=== PATIENT | male | born 1950 | race Two or more races ===

== ENCOUNTER 2019-01-22 06:47 | Emergency (ER) | payer OTHER, MEDICARE ==
[2019-01-22] MEDS ORDERED: LIDOCAINE 2% URO-JET 5 ML KIT MM ONE (07:22)
--- NOTE | 2019-01-22 07:59 | ER Document Report ---
ED General - General Chief Complaint: Trouble Voiding Stated Complaint: UNABLE TO VOID Time Seen by Provider: 01/22/19 07:53 Mode of Arrival: Ambulatory Information source: Patient, Relative Notes: 68-year-old male with urinary retention presents with request for catheterization. Daughter is at the bedside and acts as senior mechanical engineer. Patient is from [place] and visiting from out of town and forgot his catheter kit. Daughter states that he does not have to use it frequently but that he does have it in case he is unable to urinate which she has not been able to do so for approximately 12 hours. Patient denies any fever, chills, nausea, vomiting, abdominal pain, dysuria, hematuria. TRAVEL OUTSIDE OF THE [place] IN LAST 30 DAYS: No - HPI Onset: Other Onset/Duration: Sudden Quality of pain: No pain Severity: None Pain Level: Denies Associated symptoms: denies: Chest pain, Fever, Nausea, Vomiting, Shortness of breath, Sweating, Weakness Exacerbated by: Denies Relieved by: Denies Similar symptoms previously: Yes Recently seen / treated by doctor: Yes Past Medical History - General Information source: Patient, Relative - Social History Smoking Status: Never Smoker Frequency of alcohol use: Occasional Drug Abuse: None Lives with: Spouse/Significant other Family History: Reviewed & Not Pertinent Patient has suicidal ideation: No Patient has homicidal ideation: No Renal/ Medical History: Reports: Hx Benign Prostatic Hyperplasia Review of Systems - Review of Systems Notes: REVIEW OF SYSTEMS: CONSTITUTIONAL : Denies fever, chills, or sweats. Denies recent illness. Denies weight loss, recent hospitalizations. EENT: Denies visual changes, eye pain. Denies sore throat, oral lesions, difficulty swallowing. CARDIOVASCULAR: Denies chest pain. Denies palpitations. Denies lower extremity edema. RESPIRATORY: Denies cough. Denies shortness of breath, wheezing. GASTROINTESTINAL: Denies abdominal pain or distention. Denies nausea, vomitin g, or diarrhea. Denies blood in vomitus, stools, or per rectum. Denies black, tarry stools. Denies constipation. GENITOURINARY: + difficulty urinating, denies painful urination, frequency, blood in urine, testicular pain or penile discharge. MUSCULOSKELETAL: Denies back or neck pain or stiffness. Denies joint pain or swelling. SKIN: Denies rash, lesions or sores. HEMATOLOGIC : Denies easy bruising or bleeding. LYMPHATIC: Denies swollen glands. NEUROLOGICAL: Denies confusion or altered mental status. Denies loss of consciousness. Denies dizziness or lightheadedness. Denies headache. Denies weakness or paralysis. Denies problems difficulty with ambulation, slurred speech. Denies sensory loss, numbness, or tingling. Denies seizures. PSYCHIATRIC: Denies anxiety or stress. Denies depression, suicidal ideation, or Physical Exam - Vital signs Vitals: Temp Pulse Resp BP Pulse Ox 97.4 F 71 20 188/98 H 96 01/22/19 06:53 01/22/19 06:53 01/22/19 06:53 01/22/19 06:53 01/22/19 06:53 - Notes Notes: PHYSICAL EXAMINATION: GENERAL: Well-appearing, well-nourished and in no acute distress. HEAD: Atraumatic, normocephalic. EYES: Pupils equal round and reactive to light, extraocular movements intact, sclera anicteric, conjunctiva are normal. ENT: Nares patent, oropharynx clear without exudates. Moist mucous membranes. NECK: Normal range of motion, supple without lymphadenopathy LUNGS: Breath sounds clear to auscultation bilaterally and equal. No wheezes rales or rhonchi. HEART: Regular rate and rhythm without murmurs ABDOMEN: Soft, nontender, nondistended abdomen. No guarding, no rebound. No masses appreciated. Musculoskeletal: Normal range of motion, no pitting or edema. No cyanosis. NEUROLOGICAL: Cranial nerves grossly intact. Normal speech, normal gait. Normal sensory, motor exams PSYCH: Normal mood, normal affect. SKIN: Warm, Dry, normal turgor, no rashes or lesions noted. Course - Re-evaluation Re-evalutation: Temp Pulse Resp BP Pulse Ox 97.4 F 71 20 188/98 H 96 01/22/19 06:53 01/22/19 06:53 01/22/19 06:53 01/22/19 06:53 01/22/19 06:53 01/22/19 07:58 68-year-old male with urinary retention presents with request for catheterization. Daughter is at the bedside and acts as senior mechanical engineer. Patient is from [place] and visiting from out of town and forgot his catheter kit. Daughter states that he does not have to use it frequently but that he does have it in case he is unable to urinate which she has not been able to do so for approximately 12 hours. Patient denies any fever, chills, nausea, vomiting, ab dominal pain, dysuria, hematuria. Vital signs reviewed and patient is hypertensive but afebrile. He does not appear toxic or dehydrated. He is in no acute distress. Straight cath was performed and 600 cc of urine was voided. Patient does not want a permanent Overton. 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 Patient was evaluated and treated as appropriate for the patient's presenting symptoms and complaint, with consideration of any critical or life threatening conditions that may be associated with their obtained history and exam as noted above. All results were discussed with patient and his daughter who is at the bedside patient provided the opportunity to ask questions, and express concerns. Patient was educated on treatments based on their presumed diagnosis as noted above. At this time we will discharge the patient with return precautions and follow-up recommendations. Verbal discharge instructions given a the bedside. Medication warnings reviewed. Patient is in agreement with this plan and has verbalized understanding of return precautions. After careful consideration I feel that that patient can be safely discharged from the emergency department, they were advised to followup with a primary care physician in 2-3 days. Dictation on this chart was performed using voice recognition software and may result in unintended grammatical, spelling, syntax or errors. - Vital Signs Vital signs: Temp Pulse Resp BP Pulse Ox 97.4 F 71 20 188/98 H 96 01/22/19 06:53 01/22/19 06:53 01/22/19 06:53 01/22/19 06:53 01/22/19 06:53 Discharge - Discharge Clinical Impression: Enlarged prostate, Urinary retention Condition: Good Disposition: HOME, SELF-CARE Instructions: Urinary Retention ([facility]) Additional Instructions: Regarding Blood Pressure: Your blood pressure was noted to be greater than 120/80 at least once in the emergency room today. It is recommended that you follow-up with her primary care physician in the next week for repeat blood pressure check. The Centers for Medicare and Medicaid Services has specific recommendations regarding a person's blood pressure. There are several lifestyle modifications that are recommended in order to help lower your blood pressure. These include: Quitting smoking if you smoke. Reducing the amount of sodium in your diet. Getting regular exercise Limiting alcohol to no more than 2 drinks a day for men and one drink a day for women. Eating a healthy diet, including more fruits and vegetables, low fat dairy products, less saturated and total fat. Losing weight if you are overweight. FOLLOW-UP: Call your doctor's office and let them know your blood pressure was elevated and you were advised to get your blood pressure checked in the above time-line. If you are unable to get into your doctor's office in this time period, you can follow-up with a new physician (I have left the numbers below for a few primary care doctors affiliated with this [facility]) or return to the ER. PRIMARY CARE PHYSICIANS: Dr. Yoandy Jimenez [address], [place] [address] [phone] Dr Washburn Address: [address] [place] [address] [place] [address] Dr Joseph Address: [address] [place] [address] [place] [address] Forms: Elevated Blood Pressure
[2019-01-22 08:07] VITALS: BP 164/71
== END 2019-01-22 08:07 | disposition home or self-care (01) ==
LOC: ER 06:47
DX: N40.0 Benign prostatic hyperplasia without lower urinary tract symptoms (principal); R33.9 Retention of urine, unspecified
CPT/HCPCS: 99283; 51701; C1758

== ENCOUNTER 2019-01-22 20:36 | Emergency (ER) | payer OTHER, MEDICARE ==
[2019-01-22 20:44] VITALS: BP 184/89
[2019-01-22] MEDS ORDERED: LIDOCAINE 2% URO-JET 5 ML KIT MM ONE (22:42)
--- NOTE | 2019-01-22 22:47 | ER Document Report ---
ED GI/ - General Chief Complaint: Urinary Retention Stated Complaint: NEEDS CATHETAR PLACEMENT Time Seen by Provider: 01/22/19 22:36 Mode of Arrival: Ambulatory Information source: Patient, Relative - SON TRAVEL OUTSIDE OF THE [place] IN LAST 30 DAYS: No - HPI Patient complains to provider of: Urinary retention Notes: 01/22/19 22:43 Patient is here with complaints of urinary retention. His son is at the bedside. The patient has a history of this in the past. He was seen in the emergency department earlier this morning, had a straight cath performed and was sent home with straight cathing materials. He does not feel comfortable straight cathing himself has not been able to urinate since earlier this afternoon so he came back in for evaluation. He does complain of some pain in his suprapubic area. No fever. No nausea, vomiting, diarrhea. No chest pain or shortness of breath. No rash. No injury. He is on Flomax. No other complaints at this time. - Related Data Allergies/Adverse Reactions: No Known Allergies Allergy (Unverified 01/22/19 22:02) Past Medical History - Social History Smoking Status: Never Smoker Frequency of alcohol use: Occasional Drug Abuse: None Family History: Reviewed & Not Pertinent Patient has suicidal ideation: No Patient has homicidal ideation: No - Past Medical History Cardiac Medical History: Reports: Hx Hypertension Renal/ Medical History: Reports: Hx Benign Prostatic Hyperplasia. Denies: Hx Peritoneal Dialysis Review of Systems - Review of Systems -: Yes All other systems reviewed and negative Physical Exam - Vital signs Vitals: Temp Pulse Resp BP Pulse Ox 97.9 F 70 18 184/89 H 95 01/22/19 20:40 01/22/19 20:40 01/22/19 20:40 01/22/19 20:40 01/22/19 20:40 - Notes Notes: GENERAL: alert, cooperative, nontoxic, no distress. HEAD: normocephalic, atraumatic EYES: conjunctiva pink without discharge, no external redness or swelling. EARS: no external swelling, no external redness NOSE: atraumatic, no external swelling MOUTH/THROAT: mucous membranes moist and pink, posterior pharynx without erythema, swelling, exudate. No trismus or drooling. NECK: soft, supple, full range of motion, no meningismus. CHEST: no distress, lungs clear and equal throughout. No wheezing, rales, rhonchi. CARDIAC: regular rate and rhythm, no murmur, normal capillary refill, normal pulses. No peripheral edema noted. ABDOMEN: Soft, bladder distention with mild discomfort to the suprapubic area. No rebound tenderness or guarding. BACK: full range of motion, no CVA tenderness. EXTREMITIES: full range of motion of all extremities. No redness, no swelling. NEURO: alert and oriented x 3, no focal deficits, full range of motion of all extremities. PYSCH: appropriate mood, affect. Patient is cooperative. SKIN: pink, warm, dry, no rash. : Circumcised penis. No penile discharge or bleeding. Testicular exam is unremarkable. Course - Re-evaluation Re-evalutation: 01/22/19 22:44 Patient is nontoxic-appearing with stable vitals. Patient here with complaints of needing to have a catheter placed. Patient has a history of prostate issues is currently on Flomax and has had urinary retention in the past. He had some urinary retention earlier today and was seen in the emergency department had a straight cath performed and was sent home. States that he continues to have urine retention. He does not feel comfortable using a straight cath materials he was given on his last ER visit. No fevers. No significant tenderness other than some mild tenderness over a distended bladder. Bladder scan shows almost 500 mL's of urine within the bladder. Patient states he feels like he needs to urinate but is unable. Patient will have a Overton catheter placed due to acute urinary retention. He lives in [place] and they will be traveling back home tomorrow. Instructed that he needs to follow-up with his family doctor or urologist to Wednesday for reevaluation potential Overton catheter removal. He should follow-up sooner if he develops any worsening pain, fever, vomiting, any further concerns. The patient's emergency department workup and current diagnosis were explained to the patient and or family. Follow-up instructions were provided. Medications if prescribed were discussed. Instructions for when to return to the emergency department including specific worrisome symptoms were discussed with the patient and/or family. - Vital Signs Vital signs: Temp Pulse Resp BP Pulse Ox 97.9 F 70 18 184/89 H 95 01/22/19 20:40 01/22/19 20:40 01/22/19 20:40 01/22/19 20:40 01/22/19 20:40 Discharge - Discharge Clinical Impression: Urinary retention, Enlarged prostate Condition: Stable Disposition: HOME, SELF-CARE Instructions: Urinary Retention ([facility]) Additional Instructions: Continue taking your Flomax. Keep your area clean and dry. Follow-up with your primary care doctor or urologist in [place] on Wednesday. Follow-up sooner for worsening pain, fever, persistent vomiting, or for any further concerns. Forms: Elevated Blood Pressure, Smoking Cessation Education Referrals: [facility] [Provider Group] - Follow up as needed
== END 2019-01-23 00:14 | disposition home or self-care (01) ==
LOC: ER 20:36
DX: N40.0 Benign prostatic hyperplasia without lower urinary tract symptoms (principal); R33.9 Retention of urine, unspecified; I10 Essential (primary) hypertension
CPT/HCPCS: 99283; 51702; J3490